=== PATIENT | male | born 1985 | race Two or more races ===

== ENCOUNTER 2024-07-11 00:52 | Emergency (ER) | payer OTHER ==
[~2024-07-11] VITALS: Ht 177.8 cm; Wt 98.9 kg
[2024-07-11] MEDS ORDERED: HYDROCODONE/CHLORPHEN P-STIREX 5 ML ML PO STA (01:44)
[2024-07-11 02:37] LABS: HEMATOCRIT 43.5 % (39.0-48.0); HEMOGLOBIN 14.9 g/dL (13-16.00); MEAN CELL VOLUME 90.1 fL (80.0-100.00); MEAN CORPUSCULAR HGB CONC 34.4 g/dl (32.0-36.0); PLATELET COUNT 201 K/uL (150-450); RED BLOOD COUNT 4.82 M/uL (4.00-6.00); RED CELL DISTRIBUTION WIDTH 14.5 % (11.5-14.5)
== END 2024-07-11 10:01 | disposition home or self-care (01) ==
LOC: ER 00:55 → EMR PED 01:04 → ER 01:04
DX: J06.9 Acute upper respiratory infection, unspecified (principal); Z20.822 Contact with and (suspected) exposure to COVID-19; Z88.6 Allergy status to analgesic agent; Z91.013 Allergy to seafood